=== PATIENT | female | born 1985 | race Two or more races ===

== ENCOUNTER 2017-05-16 21:31 | Emergency (ER) | payer SELFPAY ==
[~2017-05-16] VITALS: Ht 165.1 cm; Wt 77.1 kg
[2017-05-16 21:45] VITALS: BP 120/72
== END 2017-05-17 05:00 | disposition left against medical advice (07) ==
LOC: EDBD 21:31 → ER 21:38
DX: S00.93XA Contusion of unspecified part of head, initial encounter (principal); Z53.21 Procedure and treatment not carried out due to patient leaving prior to being seen by health care provider; Y08.89XA Assault by other specified means, initial encounter; Y93.89 Activity, other specified; Y99.8 Other external cause status; Y92.89 Other specified places as the place of occurrence of the external cause